=== PATIENT | male | born 1960 | race Caucasian/White ===

== ENCOUNTER → 2016-09-12 | Outpatient (CLI) | payer MEDICAID ==
[~2016-09-12] MED LIST: APRESOLINE25 MG PO; NORVASC10 MG PO; PREDNISONE10 MG PO; PROVENTIL HFA6.7 GM INH; SYMBICORT 80-46.9 GM INH; TOPROL XL25 MG PO
== END | disposition short-term general hospital (02) ==
LOC: CLSURG 08:47
DX: K40.90 Unilateral inguinal hernia, without obstruction or gangrene, not specified as recurrent (principal); J44.9 Chronic obstructive pulmonary disease, unspecified; I12.9 Hypertensive chronic kidney disease with stage 1 through stage 4 chronic kidney disease, or unspecified chronic kidney disease; N18.9 Chronic kidney disease, unspecified; E78.5 Hyperlipidemia, unspecified; F17.210 Nicotine dependence, cigarettes, uncomplicated; Z98.890 Other specified postprocedural states; Z99.2 Dependence on renal dialysis

== ENCOUNTER 2016-09-26 08:08 | Day surgery (SDC) | payer MEDICAID ==
[~2016-09-26] VITALS: Ht 177.8 cm; Wt 57.6 kg
== END 2016-09-26 12:50 | disposition short-term general hospital (02) ==
LOC: SURGOP
PROC: 0YU60JZ Supplement Left Inguinal Region with Synthetic Substitute, Open Approach (ICD-10-PCS; principal; 2016-09-26)
DX: K40.90 Unilateral inguinal hernia, without obstruction or gangrene, not specified as recurrent (principal); E11.22 Type 2 diabetes mellitus with diabetic chronic kidney disease; I13.2 Hypertensive heart and chronic kidney disease with heart failure and with stage 5 chronic kidney disease, or end stage renal disease; N18.6 End stage renal disease; I50.9 Heart failure, unspecified; J45.909 Unspecified asthma, uncomplicated; J44.9 Chronic obstructive pulmonary disease, unspecified; E78.5 Hyperlipidemia, unspecified; D64.9 Anemia, unspecified; F17.210 Nicotine dependence, cigarettes, uncomplicated; Z79.82 Long term (current) use of aspirin; Z79.891 Long term (current) use of opiate analgesic; Z79.899 Other long term (current) drug therapy; Z98.890 Other specified postprocedural states; Z99.2 Dependence on renal dialysis
CPT/HCPCS: C1781; J0690; J2250; J3010

== ENCOUNTER → 2016-10-10 | Outpatient (CLI) | payer SELFPAY | END | disposition short-term general hospital (02) | LOC: CLSURG 10-03 10:31 | DX: Z48.815 Encounter for surgical aftercare following surgery on the digestive system (principal); Z87.19 Personal history of other diseases of the digestive system ==